=== PATIENT | female | born 1960 | race Hispanic/Latino ===

== ENCOUNTER 2017-01-12 10:16 | Emergency (ER) | payer OTHER, MEDICAID ==
[2017-01-12 10:22] VITALS: O2SAT 100
[2017-01-12] MEDS ORDERED: Sodium Chloride 0.9% 1,000 ML IV ONE (11:02)
[2017-01-12] MEDS ORDERED: Sodium Chloride 0.9% 1,000 ML ONE (11:16)
[2017-01-12 11:18] LABS: BASO % 0.7 % (0.0-2.0); EOS # 0.2 K/uL (0.0-0.7); EOS % 2.7 % (0.0-4.0); HEMATOCRIT 35.3 % (34.0-47.0); LYMPH # 2.8 K/uL (1.0-4.3); MEAN CELL VOLUME 83.2 fL (81.0-99.0); MEAN CORPUSCULAR HEMOGLOBIN 26.9 pg (27.0-31.0); MEAN CORPUSCULAR HGB CONC 32.3 g/dL (33.0-37.0); MEAN PLATELET VOLUME 7.4 fL (7.2-11.7); MONO # 0.5 K/uL (0.0-0.8); MONO % 7.1 % (0.0-10.0); NRBC % 0.1 % (0.0-2.0); WHITE BLOOD COUNT 7.3 K/uL (4.8-10.8)
[2017-01-12 11:26] LABS: CHLORIDE 103 mmol/L (98-107); POTASSIUM 3.9 mmol/L (3.6-5.2); SODIUM 139 mmol/L (132-148)
[2017-01-12 11:28] LABS: AST/SGOT 19 U/L (14-36); BILIRUBIN,TOTAL 0.2 mg/dL (0.2-1.3); CARBON DIOXIDE 23 mmol/L (22-30); GFR AFRICAN-AMERICAN > 60
[2017-01-12 11:29] LABS: ALB/GLOB RATIO 1.5 (1.0-2.1); ALKALINE PHOSPHATASE 117 U/L (38-126); ALT/SGPT 26 U/L (9-52); BLOOD UREA NITROGEN 19 mg/dL (7-17); CALCIUM 8.5 mg/dl (8.6-10.4); GLUCOSE,RANDOM 85 mg/dL (65-105); TOTAL PROTEIN 7.2 g/dL (6.3-8.3)
--- NOTE | 2017-01-12 11:29 | C.PDOC ---
History Of Present Illness 56 year old female presents to the ED with complaints of RUQ pain and vomiting with small amount of blood this morning. Patient states she is 8 weeks s/p cholecystectomy and has been vomiting since the procedure. Denies fever, chills , diarrhea, back pain, radiation of pain, or any other complaints at this time. Time Seen by Provider: 01/12/17 10:26 Chief Complaint (Nursing): Abdominal Pain History Per: Patient History/Exam Limitations: no limitations Onset/Duration Of Symptoms: Hrs Current Symptoms Are (Timing): Still Present Severity: Mild Location Of Pain/Discomfort: RUQ Radiation Of Pain To:: None Quality Of Discomfort: "Pain" Associated Symptoms: Vomiting. denies: Fever, Chills, Diarrhea, Urinary Symptoms Recent travel outside of the [place]: No Abnormal Vaginal Bleeding: No Past Medical History Reviewed: Historical Data, Nursing Documentation, Vital Signs Vital Signs: Last Vital Signs Temp 98.5 F 01/12/17 13:01 Pulse 59 L 01/12/17 13:01 Resp 15 01/12/17 13:01 BP 130/84 01/12/17 13:01 Pulse Ox 100 01/12/17 13:01 - Medical History PMH: Anxiety, Arthritis, Depression, HTN, Chronic Kidney Disease Surgical History: Cholecystectomy - [facility] Procedures FLUOROSCOPY OF BILI/PANCR DUCT USING L OSM CONTRAST (11/11/16) RESECTION OF GALLBLADDER, PERCUTANEOUS ENDOSCOPIC APPROACH (11/11/16) Family History: States: No Known Family Hx - Social History Hx Tobacco Use: Yes Hx Alcohol Use: No Hx Substance Use: No - Immunization History Hx Tetanus Toxoid Vaccination: No Hx Influenza Vaccination: No Hx Pneumococcal Vaccination: No Review Of Systems Except As Marked, All Systems Reviewed And Found Negative. Constitutional: Negative for: Fever, Chills Cardiovascular: Negative for: Chest Pain Respiratory: Negative for: Shortness of Breath Gastrointestinal: Positive for: Vomiting, Abdominal Pain. Negative for: Diarrhea Genitourinary: Negative for: Dysuria, Frequency Musculoskeletal: Negative for: Back Pain Neurological: Negative for: Weakness, Numbness Physical Exam - Physical Exam Appears: Non-toxic, No Acute Distress, Other (+uncomfortable) Skin: Normal Color, Warm, Dry Head: Atraumatic, Normacephalic Eye(s): bilateral: Normal Inspection, PERRL, EOMI Oral Mucosa: Moist Neck: Normal ROM, Supple Chest: Symmetrical, No Deformity Cardiovascular: Rhythm Regular, No Friction Rub, No Murmur Respiratory: Normal Breath Sounds, No Accessory Muscle Use, No Rales, No Rhonchi , No Wheezing Gastrointestinal/Abdominal: Bowel Sounds (active), Soft, Tenderness (+RUQ tenderness), No Distention, No Guarding, No Rebound Back: Normal Inspection, No CVA Tenderness, No Vertebral Tenderness Extremity: Normal ROM, No Swelling Neurological/Psych: Oriented x3, Normal Speech, Normal Cognition, Normal Motor Gait: Steady ED Course And Treatment - Laboratory Results Result Diagrams: 01/12/17 11:13 01/12/17 11:13 O2 Sat by Pulse Oximetry: 100 (Room air) Pulse Ox Interpretation: Normal - CT Scan/US Abdomen Limited US Other Rad Studies (CT/US): Read By Radiologist, Radiology Report Reviewed CT/US Interpretation: FINDINGS: LIVER: Measures 16.3 cm. Mildly increased echogenicity of the liver parenchyma. No intrahepatic bile duct dilatation. GALLBLADDER: Gallbladder not seen. COMMON BILE DUCT: Measures 5-6 mm. No stones. No dilatation. PANCREAS: Limited visualization. RIGHT KIDNEY: Measures 13.1 x 5.1 x 4.8cm. Normal echogenicity. No calculus, mass, or hydronephrosis. Re- demonstration of a presumed cyst measuring 2.1 centimeter in the right renal pelvis. LEFT KIDNEY: Not clearly imaged. Possible fusion of the right left kidneys. SPLEEN: Not imaged. AORTA: No aneurysmal dilatation within the visualized segments of the aorta. IVC: Not clearly evaluated. OTHER FINDINGS: The visualized segments of the portal vein appear patent. IMPRESSION: Gallbladder not seen. Limited visualization of the pancreas. Possible fusion of both kidneys. Other findings as above. Medical Decision Making Medical Decision Making: Plan: -Abdomen Limited US -Blood work -Urinalysis -Toradol -Zofran -IV fluids -Reassess Progress: the patient has had no vomiting or GI bleeding in the ED. On re-exam, the patient reports improvement of symptoms. Lungs are CTA, heart is RRR, Abdomen is soft, non-tender and tolerating PO well. ambulatory in the ED with steady gait. Follow up with the medical doctor within 1-2 days. return if worsened. Disposition Counseled Patient/Family Regarding: Studies Performed, Diagnosis - Disposition Referrals: [facility] [Outside] Jared Smith [Staff Provider] - John Matute MD [Staff Provider] - Disposition: HOME/ ROUTINE Disposition Time: 12:54 Condition: IMPROVED Additional Instructions: Follow up with the medical doctor within 1-2 days. Return of worsened. 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 - Scribe Statement The provider has reviewed the documentation as recorded by the Scribe Mariana Walters. All medical record entries made by the Scribe were at my direction and personally dictated by me. I have reviewed the chart and agree that the record accurately reflects my personal performance of the history, physical exam, medical decision making, and the department course for this patient. I have also personally directed, reviewed, and agree with the discharge instructions and disposition.
[2017-01-12 11:35] LABS: RBC URINE 1 /hpf (0-3); URINE BILIRUBIN NEGATIVE (NEGATIVE); URINE BLOOD NEGATIVE (NEGATIVE); URINE COLOR Straw (YELLOW); URINE GLUCOSE (UA) NORMAL (Normal); URINE KETONE NEGATIVE (NEGATIVE); URINE LEUKOCYTE ESTERASE TRACE Leu/uL (Negative); URINE PROTEIN NEGATIVE (NEGATIVE); URINE UROBILINOGEN NORMAL mg/dL (0.2-1.0); WBC URINE 1 /hpf (0-5)
--- NOTE | 2017-01-12 12:10 | US ---
HISTORY: RUQ pain, s/p cholecystectomy COMPARISON: Ultrasound from 11/11/2016 TECHNIQUE: Sonographic evaluation of the abdomen. FINDINGS: LIVER: Measures 16.3 cm. Mildly increased echogenicity of the liver parenchyma. No intrahepatic bile duct dilatation. GALLBLADDER: Gallbladder not seen. COMMON BILE DUCT: Measures 5-6 mm. No stones. No dilatation. PANCREAS: Limited visualization. RIGHT KIDNEY: Measures 13.1 x 5.1 x 4.8cm. Normal echogenicity. No calculus, mass, or hydronephrosis. Re- demonstration of a presumed cyst measuring 2.1 centimeter in the right renal pelvis. LEFT KIDNEY: Not clearly imaged. Possible fusion of the right left kidneys. SPLEEN: Not imaged. AORTA: No aneurysmal dilatation within the visualized segments of the aorta. IVC: Not clearly evaluated. OTHER FINDINGS: The visualized segments of the portal vein appear patent. IMPRESSION: Gallbladder not seen. Limited visualization of the pancreas. Possible fusion of both kidneys. Other findings as above.
[2017-01-12 13:02] VITALS: BP 130/84; PULSE 59; RESP 15; TEMP 98.5
== END 2017-01-12 13:04 | disposition home or self-care (01) ==
LOC: C.ER 10:16
DX: K29.70 Gastritis, unspecified, without bleeding (principal)
CPT/HCPCS: 76705; 80053; 81001; 83690; 84703; 85025; 96361; 96374; 96375; 99285; J1885; J2405; J7040